=== PATIENT | female | born 1975 | race Two or more races ===

== ENCOUNTER 2024-09-30 08:45 | Outpatient (RCR) | payer OTHER, SELFPAY | END 2024-09-30 13:33 | disposition home or self-care (01) | PROVIDERS: PCP Family Medicine; Visit Provider Family Medicine | DX: M77.12 Lateral epicondylitis, left elbow (principal); M25.522 Pain in left elbow; M25.60 Stiffness of unspecified joint, not elsewhere classified; M62.81 Muscle weakness (generalized); Z51.89 Encounter for other specified aftercare | CPT/HCPCS: 97033; 97035; 97110; 97140; 97165; 97535; X5282 ==